=== PATIENT | female | born 1945 | race Caucasian/White ===

== ENCOUNTER 2023-07-07 19:43 | Emergency (ER) | payer MEDICARE, SELFPAY ==
[2023-07-07 19:44] VITALS: BP 120/66; PULSE 95; PULSE 99; RESP 16; TEMP 36.1; TEMP 36.3; O2SAT 96
[2023-07-07 19:56] VITALS: BMI 23.4
--- NOTE | 2023-07-07 20:06 | EDS_ITS ---
HPI History of Present Illness HPI Narrative: 78-year-old female with dementia lives at home with her . They were going out to eat. She lost her balance and fell injuring her right ankle. No other injuries other than a minor abrasion to the left elbow. Did not hit her head. No LOC. No lower history of blood clot she is on the blood thinner Eliquis according to her . But she did not hit her head. Chief Complaint: Lower Extremity Injury Informant: patient and spouse/S.O. Occured/Mechanism Mechanism/Context: Yes injury and Yes blunt trauma Onset/Context/Timing Onset: Today and Hours Context: Sudden Onset Timing: Continuous Quality of Pain: Sharp Current Severity: Mild Maximum Severity: Mild Associated Symptoms Associated Symptoms: Negative for Parasthesia, Weakness or Loss of Funtion Narrative Narrative: 78-year-old female with dementia fell injuring her right ankle. Minor abrasion left elbow no other injuries. Not hit her head. No LOC. Prior similar symptoms: No Recent Illness/Hospitalization: No PFSH PFSH Home Medications Quinapril Hcl [Accupril] 10 mg PO DAILY 11/09/13 [History Last Taken 04/07/17 06:00] levothyroxine 75 mcg tablet 75 mcg PO DAILY 11/09/13 [History Last Taken 04/07/17 06:00] metformin 500 mg tablet 500 mg PO DAILY 11/09/13 [History Last Taken 04/07/17 06:00] simvastatin 80 mg tablet (Zocor) 80 mg PO QHS 11/09/13 [History Last Taken Unknown] cholecalciferol (vitamin D3) 1,250 mcg (50,000 unit) capsule 50,000 unit PO DAILY 04/03/17 [History Last Taken 04/07/17 06:00] donepezil 10 mg tablet 10 mg PO DAILY 04/03/17 [History Last Taken Unknown] oxycodone 5 mg tablet 5 - 10 mg (1 - 2 x 5 mg) PO Q4H PRN PRN Pain #20 tabs 04/08/17 [Rx Last Taken Unknown] Allergy/AdvReac Type Severity Reaction Status Date / Time No Known Allergies Allergy Verified 07/07/23 19:46 Social History Smoking Status: Never smoker ROS ROS ED ROS Narrative According to her no recent illness. Patient is a limited informant due to her dementia. Review of Systems ROS Unobtainable: Denies due to encephalopathy Constitutional Constitutional ED: Denies chills or fever(s) Eyes Eyes: Denies blurry vision ENT ENT ED: Denies ear pain or rhinorrhea Cardiovascular Cardiovascular: Denies chest pain or palpitations Respiratory/Chest Respiratory/Chest: Denies cough or dyspnea Gastrointestinal Gastrointestinal: Denies abdominal pain Genitourinary Genitourinary ED: Denies dysuria or hematuria Musculoskeletal Musculoskeletal: Denies arthralgias, back pain, myalgias or neck pain Integumentary Denies abscess or Abrasions Neurologic Neurologic: Denies headache(s) or paresthesias Psychiatric Psychiatric: Denies anxiety or depression Endocrine Endocrinology: Denies polydipsia, polyphagia or polyuria Hematologic/Lymphatic Hematologic/Lymphatic: Denies easy bleeding, easy bruising or lymphadenopathy Allergic/Immunologic Allergic/Immunologic ED: Denies mouth swelling, tongue swelling or urticaria EXAM Physical Exam Narrative Exam Narrative: 78-year-old female vital signs stable afebrile. No acute distress. at bedside. Patient sitting up in bed. HEENT exam pupils round react to light. No signs of trauma to her face or scalp. Nontender. No hematoma. Neck nontender. Back and spine nontender. No bruising. Lungs clear to auscultation. Heart regular rhythm rate about 95 no murmur. Chest wall and ribs nontender. Abdomen soft nontender. Both upper extremities have 5-5 debone supervisor strength. Normal range of motion. No deformity. She she has a small Band-Aid on left elbow. Hips, thighs knees are nontender. Her right ankle is mild tenderness to the lateral malleolus mild swelling. The is nontender. Foot nontender. No deformity. Neurologically she is awake alert no focal motor deficits. She can flex and extend at both knees and hips. Const Vital Signs: 07/07/23 19:44 07/07/23 19:44 Temperature 97 F L 97.4 F L Temperature Source Temporal Temporal Pulse Rate 99 95 Respiratory Rate 16 16 Blood Pressure 120/66 120/66 Blood Pressure Mean 84 84 Pulse Ox 96 96 Oxygen Delivery Method Room Air Room Air Positive well nourished and well developed; Negative for obese, cachectic, contractures or unkempt General Appearance ED: well developed and NAD; Negative for unkempt, cachectic or contractures Nutritional Appearance: Negative for cachectic or obese HEENT normocephalic and atraumatic; Negative for trauma or tenderness Eyes PERRL General Eye ED: Negative for other Neck full ROM and supple Thyroid: Negative for tender or other Lymph Lymphatic: Negative for other Chest Wall inspection of chest normal and palpation of chest normal Chest: Negative for other Resp normal respiratory effort, no retractions and clear to auscultation bilaterally Effort and Inspection: Negative for pain with movement Auscultation: Negative for rales, rhonchi or wheezes Cardio regular rate, regular rhythm, S1 normal heart sound, S2 normal heart sound and no murmurs Rate: Negative for bradycardia or tachycardic Rhythm: Negative for abnormal rhythm Bruits: Negative for other GI non-tender, non-distended and no masses Inspection: Negative for abdominal distention Auscultation: normoactive bowel sounds Palpation: soft; Negative for tender, guarding or rebound tenderness present Bladder / Kidney Exam: No other Back/Spine no CVA tenderness General Back: Negative for CVA tenderness or swelling Cervical Spine: Negative for cervical spine tenderness Thoracic Spine / Upper Back: Negative for thoracic spinal tenderness Lumbar Spine / Lower Back: Negative for lumbar spinal tenderness Extremity normal to inspection and full ROM Extremity Narrative: Except right ankle lateral malleolus mild swelling and tenderness. No deformity. Mid malleolus nontender. Achilles tendon intact. Dorsi plantarflexion intact. Able to wiggle her toes. No foot tenderness or deformity nor any foot swelling. Normal touch sensation. Right hip, knee and proximal tib-fib are completely nontender. No swelling. Neuro No oriented x3, CN's II-XII intact bilaterally and moves all extremities Neuro Narrative: Dementia. Sensorium / Orientation: alert, oriented to person, orientation impaired and confused; Negative for oriented to place, oriented to time, lethargic or stuporous Motor Exam: strength 5/5 throughout Psych mental status grossly normal Appearance: Negative for unkempt Speech: No other Mood & Affect: Negative for anxious Skin no wounds Skin Narrative: Minor abrasion left elbow. Lesions: no lesions Rashes: no rashes Trauma: Negative for laceration MDM MDM MDM Narrative Medical decision making narrative: 78-year-old demented female lost her balance and fell at home injuring the right ankle. X-ray being obtained. No other significant injuries. Minor abrasion left elbow. Did not hit her head. History & Record Review Discussion w/independent historian: Patient and Family Additional record(s) reviewed:: Prior inpatient record, Prior outpatient record, Prior ED visit and Prior labs Radiography Diagnostic Testing: Right ankle x-ray, 3 views, interpreted by myself shows Discharge Plan Triage Chief Complaint: Lower Extremity Injury ED Provider: Volodymyr Santana Dx/Rx/DC Orders Clinical Impression: Ankle sprain, History of dementia, Fall Instructions: ED Ankle Sprain (Adult) Prescriptions: No Action metformin 500 MG tablet 500 mg PO DAILY Patient Comments: simvastatin [Zocor] 80 MG tablet 80 mg PO QHS Patient Comments: CHOLESTEROL levothyroxine 75 MCG tablet 75 mcg PO DAILY Patient Comments: THYROID Quinapril Hcl [Accupril] 10 MG tablet 10 mg PO DAILY Patient Comments: BLOOD PRESSURE donepezil 10 MG tablet 10 mg PO DAILY Patient Comments: SHORT TERM MEMORY cholecalciferol (vitamin D3) 50,000 UNIT capsule 50,000 unit PO DAILY oxycodone 5 MG tablet 5 - 10 mg PO Q4H PRN PRN (Reason: Pain) Qty: 20 0RF Primary Care Provider: Gaurang Bowen Referrals: Aida Cueva MD [Med Staff - Assistant Program Director] - As Needed Activity Restrictions/Additional Instructions: Nothing broken. Right ankle sprain. Ice and elevate. Tylenol and/or Motrin for pain. This should progressively get better but not improving in the next 1 to 2 weeks to have it reevaluated. Disposition Disposition: Home, Self Care
--- NOTE | 2023-07-07 20:38 | RAD_ITS ---
STUDY: X-RAY - RIGHT ANKLE REASON FOR EXAM: Female, 78 years old. fall and pain TECHNIQUE: 3 view(s) of the ankle. COMPARISON: None. FINDINGS: Normal visualized distal tibia and fibula. Normal medial and lateral malleoli. Normal tibiotalar articulation and ankle mortise. Normal visualized talus and calcaneus. The visualized subtalar, talonavicular, calcaneocuboid and tarsal articulations are normal. There is no demonstrated fracture. The soft tissue structures are unremarkable. RAD/Ankle min 3 Views IMPRESSION: Normal x-ray examination of the ankle. Electronically Signed: Stephen Manuel MD at 21:15 EDT ,
[2023-07-07 21:32] VITALS: BP 121/79; PULSE 71; RESP 19; TEMP 36.1; O2SAT 97
== END 2023-07-07 21:33 | disposition home or self-care (01) ==
PROVIDERS: Emergency Provider Emergency Medicine; Visit Provider Emergency Medicine
DX: S93.401A Sprain of unspecified ligament of right ankle, initial encounter (principal); F03.90 Unspecified dementia, unspecified severity, without behavioral disturbance, psychotic disturbance, mood disturbance, and anxiety; W19.XXXA Unspecified fall, initial encounter
CPT/HCPCS: 73610; 99282